=== PATIENT | female | born 1985 | race Caucasian/White ===

== ENCOUNTER 2017-03-30 10:12 | Emergency (ER) | payer MEDICAID ==
[~2017-03-30] VITALS: Ht 167.6 cm; Wt 72.4 kg
[~2017-03-30 10:12] MED LIST: CYCL-1 PO; NAPR-56 PO; NEO/5DRO3 RIGHTEYE; NO HOME MEDS
[2017-03-30 10:15] VITALS: BP 132/95
[2017-03-30] MEDS ORDERED: IBUP-1986 PO (10:29)
[2017-03-30] MEDS ORDERED: PENI500T2 PO (10:29)
[2017-03-30] MEDS ORDERED: HYDR-3965 PO (10:29)
[2017-03-30] MEDS ORDERED: ketorolac trometh inj. 60 MG/2 ML VIAL IM ONE (10:45)
== END 2017-03-30 10:58 | disposition home or self-care (01) ==
LOC: ER 10:13
DX: K08.89 Other specified disorders of teeth and supporting structures (principal); K02.9 Dental caries, unspecified; G89.29 Other chronic pain; M54.9 Dorsalgia, unspecified
CPT/HCPCS: 96372; 99283; J1885

== ENCOUNTER 2018-06-25 15:17 | Emergency (ER) | payer MEDICAID ==
[~2018-06-25] VITALS: Ht 167.6 cm; Wt 78.0 kg
[~2018-06-25 15:17] MED LIST changes: +IBUP-1986 PO
[2018-06-25 15:24] VITALS: BP 143/79
[2018-06-25] MEDS ORDERED: ketorolac trometh. 30mg/ml inj. IM ONE (15:55)
== END 2018-06-25 16:35 | disposition home or self-care (01) ==
LOC: ER 15:18
DX: G89.29 Other chronic pain (principal); M54.5 Low back pain
CPT/HCPCS: 96372; 99283; J1885

== ENCOUNTER 2018-08-09 17:42 | Emergency (ER) | payer MEDICAID ==
[2018-08-09 17:44] VITALS: BP 131/84
[2018-08-09] MEDS ORDERED: ketorolac tromethamine 15mg/ml inj. IM ONE (18:20)
== END 2018-08-09 18:36 | disposition home or self-care (01) ==
LOC: ER 17:42
DX: M25.512 Pain in left shoulder (principal); G89.29 Other chronic pain; M54.5 Low back pain; Z98.890 Other specified postprocedural states; Z79.899 Other long term (current) drug therapy
CPT/HCPCS: 96372; 99283; J1885

== ENCOUNTER 2018-12-05 10:40 | Emergency (ER) | payer MEDICAID ==
[~2018-12-05] VITALS: Ht 167.6 cm; Wt 78.6 kg
[2018-12-05 10:48] VITALS: BP 126/86
[2018-12-05] MEDS ORDERED: AZIT250T PO (11:37)
== END 2018-12-05 11:51 | disposition home or self-care (01) ==
LOC: ER 10:42
DX: J32.9 Chronic sinusitis, unspecified (principal); G89.29 Other chronic pain; Z98.890 Other specified postprocedural states; Z79.2 Long term (current) use of antibiotics; Z79.899 Other long term (current) drug therapy
CPT/HCPCS: 99283

== ENCOUNTER 2019-03-12 13:57 | Emergency (ER) | payer MEDICAID ==
[~2019-03-12] VITALS: Ht 167.6 cm; Wt 76.4 kg
[~2019-03-12 13:57] MED LIST changes: +AZIT250T PO
[2019-03-12 14:19] VITALS: BP 140/77
== END 2019-03-12 15:17 | disposition home or self-care (01) ==
LOC: ER 13:57
DX: M25.532 Pain in left wrist (principal); R20.0 Anesthesia of skin; R20.2 Paresthesia of skin; G89.29 Other chronic pain; Z98.890 Other specified postprocedural states; Z79.2 Long term (current) use of antibiotics; Z79.899 Other long term (current) drug therapy
CPT/HCPCS: 29125; 73110; 99283

== ENCOUNTER 2019-03-15 15:41 | Emergency (ER) | payer MEDICAID ==
[~2019-03-15] VITALS: Ht 167.6 cm; Wt 80.0 kg
[2019-03-15 15:46] VITALS: BP 150/88
== END 2019-03-15 17:24 | disposition home or self-care (01) ==
LOC: ER 15:41
DX: M25.532 Pain in left wrist (principal); M79.642 Pain in left hand; G89.29 Other chronic pain; Z98.890 Other specified postprocedural states; Z79.899 Other long term (current) drug therapy
CPT/HCPCS: 99281

== ENCOUNTER 2019-04-01 21:37 | Emergency (ER) | payer MEDICAID ==
[~2019-04-01] VITALS: Ht 167.6 cm; Wt 73.6 kg
[2019-04-01 21:39] VITALS: BP 136/90
[2019-04-01] MEDS ORDERED: OFLO5DRO3 OT (22:57)
== END 2019-04-01 23:26 | disposition home or self-care (01) ==
LOC: ER 21:38
DX: H60.92 Unspecified otitis externa, left ear (principal); G89.29 Other chronic pain; Z98.890 Other specified postprocedural states; Z79.899 Other long term (current) drug therapy
CPT/HCPCS: 99283

== ENCOUNTER 2019-07-08 00:51 | Emergency (ER) | payer MEDICAID ==
[~2019-07-08] VITALS: Ht 167.6 cm; Wt 77.3 kg
[~2019-07-08 00:51] MED LIST changes: +OFLO5DRO3 OT
[2019-07-08 01:25] LABS: BASOPHILS # (AUTO) 0.1 X10'3 (0-0.2); BASOPHILS % (AUTO) 1.4 % (0-1); EOSINOPHILS # (AUTO) 0.4 X10'3 (0-0.9); EOSINOPHILS % (AUTO) 4.3 % (0-6); HEMATOCRIT 40.2 % (35.0-45.0); HEMOGLOBIN 13.2 g/dl (12.0-16.0); LYMPHOCYTES # (AUTO) 2.6 X10'3 (1.1-4.8); LYMPHOCYTES % (AUTO) 28.6 % (21-51); MEAN CORPUSCULAR HEMOGLOBIN 29.8 PG (27.0-31.0); MEAN CORPUSCULAR HGB CONC 32.8 g/dL (33.0-36.5); MEAN CORPUSCULAR VOLUME 90.7 FL (78-98); MEAN PLATELET VOLUME 7.4 FL (7.4-10.4); MONOCYTES # (AUTO) 0.4 X10'3 (0-0.9); MONOCYTES % (AUTO) 4.5 % (2-12); NEUTROPHILS # (AUTO) 5.5 X10'3 (1.8-7.7); NEUTROPHILS % (AUTO) 61.2 % (42-75); PLATELET COUNT 235 X10'3 (140-440); RED BLOOD COUNT 4.43 X10'6 (4.20-5.60); RED CELL DISTRIBUTION WIDTH 13.5 % (11.5-14.5)
[2019-07-08 01:35] LABS: ALANINE AMINOTRANSFERASE 30 U/L (12-78); ALBUMIN 3.7 G/DL (3.4-5.0); ALBUMIN/GLOBULIN RATIO 1.1 (1.1-1.5); ALKALINE PHOSPHATASE 62 IU/L (46-116); ANION GAP 5 (8-16); ASPARTATE AMINO TRANSFERASE 19 U/L (10-37); BILIRUBIN,TOTAL 0.2 MG/DL (0.1-1.0); BLOOD UREA NITROGEN 16 MG/DL (7-18); CALCIUM 8.8 MG/DL (8.5-10.1); CHLORIDE 106 MMOL/L (99-107); CREATININE 1.14 MG/DL (0.40-0.90); GLUCOSE 111 MG/DL (70-104); SODIUM 140 MMOL/L (135-145); TOTAL CARBON DIOXIDE 29.2 MMOL/L (24-32); TOTAL PROTEIN 7.2 G/DL (6.4-8.2); eGFR 54 ML/MIN
[2019-07-08 02:33] VITALS: BP 119/70
== END 2019-07-08 02:35 | disposition home or self-care (01) ==
LOC: ER 00:52
DX: R07.9 Chest pain, unspecified (principal); R44.8 Other symptoms and signs involving general sensations and perceptions; G89.29 Other chronic pain; F15.90 Other stimulant use, unspecified, uncomplicated; Z98.890 Other specified postprocedural states; Z79.2 Long term (current) use of antibiotics; Z79.899 Other long term (current) drug therapy
CPT/HCPCS: 36415; 71046; 80053; 84443; 84484; 85025; 93005; 99285

== ENCOUNTER 2019-09-23 07:51 | Day surgery (SDC) | payer MEDICAID ==
[2019-09-15 11:10] LABS: BASOPHILS # (AUTO) 0.1 X10'3 (0-0.2); BASOPHILS % (AUTO) 1.2 % (0-1); EOSINOPHILS # (AUTO) 0.3 X10'3 (0-0.9); EOSINOPHILS % (AUTO) 3.7 % (0-6); HEMATOCRIT 40.4 % (35.0-45.0); HEMOGLOBIN 13.2 g/dl (12.0-16.0); LYMPHOCYTES % (AUTO) 24.6 % (21-51); MEAN CORPUSCULAR HEMOGLOBIN 29.2 PG (27.0-31.0); MEAN CORPUSCULAR HGB CONC 32.8 g/dL (33.0-36.5); MEAN CORPUSCULAR VOLUME 89.2 FL (78-98); MEAN PLATELET VOLUME 7.7 FL (7.4-10.4); MONOCYTES # (AUTO) 0.5 X10'3 (0-0.9); NEUTROPHILS # (AUTO) 5.3 X10'3 (1.8-7.7); NEUTROPHILS % (AUTO) 64.5 % (42-75); PLATELET COUNT 246 X10'3 (140-440); RED BLOOD COUNT 4.52 X10'6 (4.20-5.60); RED CELL DISTRIBUTION WIDTH 13.6 % (11.5-14.5); WHITE BLOOD COUNT 8.2 X10'3 (4.5-11.0)
[2019-09-15 11:22] LABS: ALBUMIN 3.6 G/DL (3.4-5.0); ALBUMIN/GLOBULIN RATIO 1.1 (1.1-1.5); ALKALINE PHOSPHATASE 61 IU/L (46-116); BLOOD UREA NITROGEN 10 MG/DL (7-18); BUN/CREATININE RATIO 9.7 (6.6-38.0); CALCIUM 8.3 MG/DL (8.5-10.1); CHLORIDE 108 MMOL/L (99-107); CREATININE 1.03 MG/DL (0.40-0.90); PRE OP ALT 26 U/L (30-65); PRE OP ANION GAP 8 (8-16); PRE OP AST 21 U/L (10-37); PRE OP BILIRUB, TOTAL 0.3 MG/DL (0.0-1.0); PRE OP GLUCOSE 79 MG/DL (70-104); PRE OP POTASSIUM 3.8 MMOL/L (3.4-5.1); PRE OP SODIUM 144 MMOL/L (135-145); eGFR 61 ML/MIN
[2019-09-15 11:25] LABS: HCG SERUM QL NEGATIVE
[~2019-09-23] VITALS: Ht 167.6 cm; Wt 79.0 kg
[~2019-09-23 07:51] MED LIST changes: +ASCO250T68 PO; -AZIT250T PO; +CHOL200013 PO; -CYCL-1 PO; -IBUP-1986 PO; +LYSI500T11 PO; +MULT-85 PO; -NAPR-56 PO; -NEO/5DRO3 RIGHTEYE; -NO HOME MEDS; -OFLO5DRO3 OT; +VANCOMYCIN 1,500MG inj. 1,500 MG in normal saline 500ml IV soln 500 ML IV ONE; +ceFAZolin 2gm in dextrose, iso 50 ML IV ONE; +famotidine 20mg tablet PO ONE; +ringers solution, lacted 1,000 ML IV SCH; +vancomycin 1,500 MG in NS 300ml IV soln IV ONE
[2019-09-23 09:05] VITALS: BP 112/78
[2019-09-23] MEDS ORDERED: BUPIVAcaine/PF 2.5 mg/ml (0.25%) 30ml vial ONE (10:37)
[2019-09-23] MEDS ORDERED: LIDOcaine 0.5% W/epiNEPHrine 1:200,000 50ml vial IJ ONE (11:03)
[2019-09-23] MEDS ORDERED: LIDOcaine 0.5% (5mg/ml) 50ml vial ONE (11:07)
[2019-09-23] MEDS ORDERED: fentaNYL/PF 50MCG/1 ML 2ML syringe ONE (11:20)
[2019-09-23] MEDS ORDERED: midazolam 2 mg/2 ml injection ONE (11:55)
[2019-09-23] MEDS ORDERED: propofol inj 20 ML IV ONE ×3 (11:55)
[2019-09-23] MEDS ORDERED: ringers solution, lacted 1,000 ML IV SCH (11:56)
[2019-09-23] MEDS ORDERED: ondansetron/PF 4mg/2ml inj IV PRN (12:00)
[2019-09-23] MEDS ORDERED: proCHLORperazine 10 MG/2 ml inj IV PRN (12:00)
[2019-09-23] MEDS ORDERED: meperidine/PF 25mg/ml syringe IV PRN ×3 (12:00)
[2019-09-23] MEDS ORDERED: morphine 4 MG/ML inj SYRINge IV PRN (12:00)
[2019-09-23] MEDS ORDERED: acetaminophen 1,000mg/100ml IV 100 ML IV PRN (12:00)
[2019-09-23] MEDS ORDERED: morphine 2 MG/ML inj. syringe IV PRN (12:00)
[2019-09-23 12:21] VITALS: BP 118/72
--- NOTE | 2019-09-23 12:21 | NUR ---
Received from OR via [facility] , accompanied by Anesthesiologist LICO and report given by Anesthesiolgist. PATIENT WITH 20G PIV IN RIGHT UE RUNNING LR AT 100. DENIES PAIN LEFT WRIST DRESSING IS CDI. NO DRAINAGE PRESNET. + CAP REFILL. 10L MASK ON WITH 100% SATURATIONS. Addendum: 09/23/19 at 1232 by Jose Gerard RN, RN Amended: Links added.
[2019-09-23 12:31] VITALS: BP 120/72
[2019-09-23 12:41] VITALS: BP 118/70
--- NOTE | 2019-09-23 12:51 | NUR ---
I HAVE REVIEWED D/C INSTRUCTIONS WITH PATIENT AND FAMILY AND THEY HAVE VERBALIZED UNDERSTANDING. PATIENT D/C HOME WITH ALL BELONGINGS AND FAMILY GAVE TRANSPORT HOME. Addendum: 09/23/19 at 1512 by Jose Gerard RN, RN Amended: Links added.
== END 2019-09-23 12:51 | disposition home or self-care (01) ==
LOC: PAS 07:51
PROVIDERS: ATTEND Orthopaedic Surgery
DX: S63.592A Other specified sprain of left wrist, initial encounter (principal); M65.842 Other synovitis and tenosynovitis, left hand; F32.9 Major depressive disorder, single episode, unspecified; E66.8 Other obesity; Z68.28 Body mass index [BMI] 28.0-28.9, adult; Z72.89 Other problems related to lifestyle; F17.290 Nicotine dependence, other tobacco product, uncomplicated; Z11.59 Encounter for screening for other viral diseases; Z79.899 Other long term (current) drug therapy; Z98.890 Other specified postprocedural states; Z86.14 Personal history of Methicillin resistant Staphylococcus aureus infection; X58.XXXA Exposure to other specified factors, initial encounter; Y93.89 Activity, other specified; Y92.89 Other specified places as the place of occurrence of the external cause; Y99.8 Other external cause status
CPT/HCPCS: 29846; 36415; 80053; 82948; 84703; 85025; J2001; J2250; J2704; J3010; J3370; J3490; J7040; J7120; U0003; A4215; A6250; A6449; A7000

== ENCOUNTER 2019-12-14 15:58 | Emergency (ER) | payer MEDICAID ==
[~2019-12-14 15:58] MED LIST changes: -VANCOMYCIN 1,500MG inj. 1,500 MG in normal saline 500ml IV soln 500 ML IV ONE; -ceFAZolin 2gm in dextrose, iso 50 ML IV ONE; -famotidine 20mg tablet PO ONE; -ringers solution, lacted 1,000 ML IV SCH; -vancomycin 1,500 MG in NS 300ml IV soln IV ONE
--- NOTE | 2019-12-14 16:33 | NUR ---
PT WAS UP FOR TRIAGE, TOLD ADMITTING THAT SHE NO LONGER WANTED TO STAY. BEFORE ADMITTING COULD NOTIFIED [employer]M [employer]TER AND FINISHER, PT LEFT THE LOBBY.
== END 2019-12-14 16:35 | disposition left against medical advice (07) ==
LOC: ER 15:59
DX: R33.9 Retention of urine, unspecified (principal); Z53.21 Procedure and treatment not carried out due to patient leaving prior to being seen by health care provider

== ENCOUNTER 2021-06-12 15:04 | Inpatient (IN) | payer MEDICAID ==
[~2021-06-12] VITALS: Ht 167.6 cm; Wt 113.6 kg
[2021-06-12] MEDS ORDERED: aspirin 81mg tab.chew PO ONE (15:15)
[2021-06-12 15:44] LABS: BASOPHILS # (AUTO) 0.1 X10'3 (0-0.2); BASOPHILS % (AUTO) 1.4 % (0-1); EOSINOPHILS # (AUTO) 0.3 X10'3 (0-0.9); EOSINOPHILS % (AUTO) 4.3 % (0-6); HEMATOCRIT 31.2 % (35.0-45.0); LYMPHOCYTES # (AUTO) 2.7 X10'3 (1.1-4.8); LYMPHOCYTES % (AUTO) 35.2 % (21-51); MEAN CORPUSCULAR HEMOGLOBIN 25.1 PG (27.0-31.0); MEAN CORPUSCULAR HGB CONC 32.1 g/dL (33.0-36.5); MEAN CORPUSCULAR VOLUME 78.1 FL (78-98); MEAN PLATELET VOLUME 7.3 FL (7.4-10.4); MONOCYTES # (AUTO) 0.4 X10'3 (0-0.9); MONOCYTES % (AUTO) 5.7 % (2-12); NEUTROPHILS % (AUTO) 53.4 % (42-75); PLATELET COUNT 372 X10'3 (140-440); RED CELL DISTRIBUTION WIDTH 15.9 % (11.5-14.5); WHITE BLOOD COUNT 7.5 X10'3 (4.5-11.0)
[2021-06-12 15:50] LABS: APTT 26 SECONDS (22-32)
[2021-06-12 15:52] LABS: ALANINE AMINOTRANSFERASE 28 U/L (12-78); ALBUMIN 3.4 G/DL (3.4-5.0); ALBUMIN/GLOBULIN RATIO 0.9 (1.1-1.5); ALKALINE PHOSPHATASE 92 IU/L (46-116); ANION GAP 9 (8-16); ASPARTATE AMINO TRANSFERASE 15 U/L (10-37); BILIRUBIN,TOTAL 0.2 MG/DL (0.1-1.0); BLOOD UREA NITROGEN 12 MG/DL (7-18); CALCIUM 8.6 MG/DL (8.5-10.1); CHLORIDE 105 MMOL/L (99-107); CREATININE 0.92 MG/DL (0.40-0.90); GLUCOSE 114 MG/DL (70-104); POTASSIUM 3.5 MMOL/L (3.5-5.1); SODIUM 141 MMOL/L (135-145); TOTAL CARBON DIOXIDE 26.6 MMOL/L (24-32); eGFR 69 ML/MIN
[2021-06-12] MEDS ORDERED: iohexol 350MG/ML 100ml bottle IV ONE (16:03)
--- NOTE | 2021-06-12 16:20 | NUR ---
BACK FROM CT, IN BR WITH CUP FOR SPECIMEN
[2021-06-12] MEDS ORDERED: enoxaparin 100mg/ml syringe SUBCUT ONE (16:50)
[2021-06-12 16:54] LABS: CLARITY,URINE CLEAR (Clear); COLOR,URINE YELLOW (Yellow); GLUCOSE, URINE NEGATIVE (Neg); KETONES,URINE NEGATIVE (Neg); LEUKOCYTE ESTERASE ,URINE NEGATIVE (Neg); NITRITES, URINE NEGATIVE (Neg); OCCULT BLOOD,URINE LARGE (Neg); PROTEIN,URINE NEGATIVE (Neg); UROBILINOGEN,URINE 0.2 E.U/dL (0.2-1.0)
[2021-06-12] MEDS ORDERED: HYDROcodone/acetaminophen 5mg/325mg tablet PO ONE (17:10)
[2021-06-12 17:18] LABS: UA COLLECTION TYPE CLN CATCH MIDSTREAM; URINE AMPHETAMINE SCREEN POSITIVE (Neg); URINE BARBITUATE SCREEN NEGATIVE (Neg); URINE BENZODIAZEPINES SCREEN NEGATIVE (Neg); URINE CANNABINOID SCREEN NEGATIVE (Neg); URINE COCAINE SCREEN NEGATIVE (Neg); URINE METHADONE SCREEN NEGATIVE (Neg); URINE OPIATE SCREEN NEGATIVE (Neg); URINE PHENCYCLIDINE SCREEN NEGATIVE (Neg)
[2021-06-12 17:20] LABS: BACTERIA,URINE NONE SEEN /HPF (Neg); SQUAMOUS EPITHELIAL CELL,UR FEW /LPF (FEW); WBC,URINE NONE SEEN /HPF (0-4)
[2021-06-12] MEDS ORDERED: magnesium 4gm in 100ml NS 100 ML IV PRN (18:10)
[2021-06-12] MEDS ORDERED: ondansetron/PF 4mg/2ml inj IV PRN (18:10)
[2021-06-12] MEDS ORDERED: acetaminophen 325mg tablet PO PRN ×2 (18:10)
[2021-06-12] MEDS ORDERED: magnesium 2GM in 50ml NS 50 ML IV PRN (18:10)
[2021-06-12] MEDS ORDERED: PERFLUTREN PROTEIN-A MICROSPHR (Optison) 0.22 MG/ML 3ML VIAL IV ONE (18:10)
[2021-06-12] MEDS ORDERED: normal saline 1000ml 1,000 ML IV SCH (18:10)
[2021-06-12] MEDS ORDERED: potassium CL 10mEq/100ml bag 100 ML IV PRN (18:10)
[2021-06-12] MEDS ORDERED: magnesium Cl slow-release 64mg tablet PO PRN (18:10)
[2021-06-12] MEDS ORDERED: potassium Cl 20 mEq SR tablet PO PRN ×2 (18:10)
[2021-06-12 18:48] LABS: MAGNESIUM 2.2 MG/DL (1.5-2.4); POTASSIUM 3.7 MMOL/L (3.5-5.1)
[2021-06-12 18:50] LABS: % IRON SATURATION 30 % (11-46); IRON 128 UG/DL (49-151); TOTAL IRON BINDING CAPACITY 427 UG/DL (259-388)
[2021-06-12] MEDS: K and/or MAG REPLACEMENT MC SCH (20:00)
[2021-06-12] MEDS: apixaban 5mg tablet PO SCH (20:37)
--- NOTE | 2021-06-12 23:06 | NUR ---
Report called to LINDA Stark for pt going to [facility] [id number]
[2021-06-12 23:40] VITALS: BP 126/72
[2021-06-12] MEDS: HYDROcodone/acetaminophen 5mg/325mg tablet PO PRN (23:44)
--- NOTE | 2021-06-13 01:02 | NUR ---
Patient admitted to room 3028N. Alert and oriented 4, a little emotional at this time. Admission completed, skin intact. Tele placed and vitals are stable. Complaints of chest pain. [place] given.
[2021-06-13 02:00] VITALS: BP 130/68
[2021-06-13] MEDS: HYDROcodone/acetaminophen 5mg/325mg tablet PO PRN ×3 (05:18→14:23)
[2021-06-13 06:00] VITALS: BP 116/61
[2021-06-13 06:00] LABS: BASOPHILS # (AUTO) 0.1 X10'3 (0-0.2); BASOPHILS % (AUTO) 1.2 % (0-1); EOSINOPHILS # (AUTO) 0.4 X10'3 (0-0.9); EOSINOPHILS % (AUTO) 5.6 % (0-6); HEMATOCRIT 29.8 % (35.0-45.0); HEMOGLOBIN 9.6 g/dl (12.0-16.0); LYMPHOCYTES # (AUTO) 2.9 X10'3 (1.1-4.8); LYMPHOCYTES % (AUTO) 45.2 % (21-51); MEAN CORPUSCULAR HEMOGLOBIN 25.2 PG (27.0-31.0); MEAN CORPUSCULAR HGB CONC 32.2 g/dL (33.0-36.5); MEAN CORPUSCULAR VOLUME 78.3 FL (78-98); MEAN PLATELET VOLUME 7.6 FL (7.4-10.4); MONOCYTES # (AUTO) 0.4 X10'3 (0-0.9); MONOCYTES % (AUTO) 6.3 % (2-12); NEUTROPHILS # (AUTO) 2.7 X10'3 (1.8-7.7); NEUTROPHILS % (AUTO) 41.7 % (42-75); PLATELET COUNT 333 X10'3 (140-440); RED BLOOD COUNT 3.81 X10'6 (4.20-5.60); RED CELL DISTRIBUTION WIDTH 15.9 % (11.5-14.5); WHITE BLOOD COUNT 6.4 X10'3 (4.5-11.0)
[2021-06-13 06:11] LABS: ALBUMIN 2.9 G/DL (3.4-5.0); ANION GAP 9 (8-16); BLOOD UREA NITROGEN 14 MG/DL (7-18); BUN/CREATININE RATIO 18.4 (6.6-38.0); CALCIUM 7.9 MG/DL (8.5-10.1); CHLORIDE 111 MMOL/L (99-107); CREATININE 0.76 MG/DL (0.40-0.90); GLUCOSE 108 MG/DL (70-104); MAGNESIUM 2.4 MG/DL (1.5-2.4); POTASSIUM 4.1 MMOL/L (3.5-5.1); SODIUM 146 MMOL/L (135-145); TOTAL CARBON DIOXIDE 25.6 MMOL/L (24-32); eGFR 86 ML/MIN
[2021-06-13] MEDS: apixaban 5mg tablet PO SCH (08:17)
[2021-06-13] MEDS: K and/or MAG REPLACEMENT MC SCH (08:31)
[2021-06-13 11:00] VITALS: BP 124/72
[2021-06-13] MEDS ORDERED: APIX5TAB3 PO (14:31)
[2021-06-13 15:00] VITALS: BP 130/87
--- NOTE | 2021-06-13 16:25 | NUR ---
patient discharged to home, all belongings packed and took home with patient.
== END 2021-06-13 17:49 | disposition home or self-care (01) | DRG 134 ==
LOC: ER 15:05 → ED HOLD 18:14 → PCU 3S 23:32
PROVIDERS: ADMIT Internal Medicine; ATTEND Internal Medicine
PROC: B32T1ZZ Computerized Tomography (CT Scan) of Left Pulmonary Artery using Low Osmolar Contrast (ICD-10-PCS; principal; 2021-06-12)
PROC: B3201ZZ Computerized Tomography (CT Scan) of Thoracic Aorta using Low Osmolar Contrast (ICD-10-PCS; 2021-06-12)
PROC: B32S1ZZ Computerized Tomography (CT Scan) of Right Pulmonary Artery using Low Osmolar Contrast (ICD-10-PCS; 2021-06-12)
DX: I26.99 Other pulmonary embolism without acute cor pulmonale (principal); D50.9 Iron deficiency anemia, unspecified; F15.90 Other stimulant use, unspecified, uncomplicated; G89.29 Other chronic pain; F17.200 Nicotine dependence, unspecified, uncomplicated; I10 Essential (primary) hypertension; Z79.899 Other long term (current) drug therapy
CPT/HCPCS: 36415; 70450; 71045; 71275; 80048; 80053; 80305; 81001; 83540; 83550; 83735; 83880; 84132; 84484; 85025; 85379; 85610; 85730; 86885; 86900; 86901; 87081; 93005; 93306; 93970; 99285; G0378; J1650; J7030; Q9967

== ENCOUNTER 2021-06-18 22:51 | Emergency (ER) | payer MEDICAID ==
[~2021-06-18] VITALS: Ht 167.6 cm; Wt 100.0 kg
[~2021-06-18 22:51] MED LIST changes: +APIX5TAB3 PO
[2021-06-19 02:32] VITALS: BP 131/76
== END 2021-06-19 02:34 | disposition left against medical advice (07) ==
LOC: ER 22:52
DX: R07.9 Chest pain, unspecified (principal); Z53.21 Procedure and treatment not carried out due to patient leaving prior to being seen by health care provider
CPT/HCPCS: 36415; 84484; 93005

== ENCOUNTER 2021-07-30 11:13 | Emergency (ER) | payer MEDICAID ==
[~2021-07-30] VITALS: Ht 167.6 cm; Wt 102.3 kg
[2021-07-30 11:21] VITALS: BP 139/97
== END 2021-07-30 15:30 | disposition left against medical advice (07) ==
LOC: ER 11:13
DX: N93.9 Abnormal uterine and vaginal bleeding, unspecified (principal); Z53.21 Procedure and treatment not carried out due to patient leaving prior to being seen by health care provider

== ENCOUNTER 2021-08-24 12:12 | Emergency (ER) | payer MEDICAID ==
[~2021-08-24] VITALS: Ht 167.6 cm; Wt 102.0 kg
[2021-08-24 13:21] LABS: BASOPHILS # (AUTO) 0.1 X10'3 (0-0.2); EOSINOPHILS # (AUTO) 0.3 X10'3 (0-0.9); EOSINOPHILS % (AUTO) 3.6 % (0-6); HEMATOCRIT 37.8 % (35.0-45.0); HEMOGLOBIN 11.9 g/dl (12.0-16.0); LYMPHOCYTES # (AUTO) 2.2 X10'3 (1.1-4.8); LYMPHOCYTES % (AUTO) 26.4 % (21-51); MEAN CORPUSCULAR HEMOGLOBIN 23.9 PG (27.0-31.0); MEAN CORPUSCULAR HGB CONC 31.5 g/dL (33.0-36.5); MEAN PLATELET VOLUME 7.6 FL (7.4-10.4); MONOCYTES # (AUTO) 0.4 X10'3 (0-0.9); MONOCYTES % (AUTO) 4.9 % (2-12); NEUTROPHILS # (AUTO) 5.2 X10'3 (1.8-7.7); NEUTROPHILS % (AUTO) 64.1 % (42-75); PLATELET COUNT 288 X10'3 (140-440); RED BLOOD COUNT 4.97 X10'6 (4.20-5.60); RED CELL DISTRIBUTION WIDTH 19.1 % (11.5-14.5); WHITE BLOOD COUNT 8.1 X10'3 (4.5-11.0)
[2021-08-24 13:29] LABS: ALANINE AMINOTRANSFERASE 43 U/L (12-78); ALBUMIN 3.7 G/DL (3.4-5.0); ALKALINE PHOSPHATASE 75 IU/L (46-116); ANION GAP 8 (8-16); ASPARTATE AMINO TRANSFERASE 18 U/L (10-37); BILIRUBIN,TOTAL 0.3 MG/DL (0.1-1.0); BLOOD UREA NITROGEN 13 MG/DL (7-18); BUN/CREATININE RATIO 12.9 (6.6-38.0); CALCIUM 8.7 MG/DL (8.5-10.1); CHLORIDE 106 MMOL/L (99-107); CREATININE 1.01 MG/DL (0.40-0.90); GLUCOSE 113 MG/DL (70-104); POTASSIUM 3.2 MMOL/L (3.5-5.1); SODIUM 142 MMOL/L (135-145); TOTAL CARBON DIOXIDE 28.5 MMOL/L (24-32); TOTAL PROTEIN 7.3 G/DL (6.4-8.2); eGFR 62 ML/MIN
[2021-08-24 14:18] LABS: ANISOCYTOSIS 2+; BURR CELLS FEW; ELLIPTOCYTES FEW; HYPOCHROMASIA 1+; MICROCYTOSIS 1+; PLATELET ESTIMATE NORMAL
--- NOTE | 2021-08-24 15:58 | NUR ---
to nuc med
[2021-08-24] MEDS ORDERED: acetaminophen 325mg tablet PO ONE (16:45)
[2021-08-24 17:29] VITALS: BP 144/81
== END 2021-08-24 17:43 | disposition home or self-care (01) ==
LOC: ER 12:12
DX: R07.89 Other chest pain (principal); G89.29 Other chronic pain; F15.90 Other stimulant use, unspecified, uncomplicated; Z79.01 Long term (current) use of anticoagulants; Z79.899 Other long term (current) drug therapy; Z98.890 Other specified postprocedural states
CPT/HCPCS: 36415; 71045; 78582; 80053; 83880; 84484; 85008; 85025; 93005; 99285; A9539; A9540

== ENCOUNTER 2023-04-05 16:17 | Emergency (ER) | payer MEDICAID ==
[~2023-04-05] VITALS: Ht 167.6 cm; Wt 102.3 kg
[2023-04-05 17:00] LABS: BASOPHILS # (AUTO) 0.1 X10'3 (0-0.2); BASOPHILS % (AUTO) 0.9 % (0-1); EOSINOPHILS # (AUTO) 0.4 X10'3 (0-0.9); EOSINOPHILS % (AUTO) 3.7 % (0-6); HEMATOCRIT 35.7 % (35.0-45.0); HEMOGLOBIN 11.3 g/dl (12.0-16.0); LYMPHOCYTES # (AUTO) 2.7 X10'3 (1.1-4.8); LYMPHOCYTES % (AUTO) 23.9 % (21-51); MEAN CORPUSCULAR HEMOGLOBIN 23.5 PG (27.0-31.0); MEAN CORPUSCULAR HGB CONC 31.7 g/dL (33.0-36.5); MEAN PLATELET VOLUME 7.3 FL (7.4-10.4); MONOCYTES # (AUTO) 0.7 X10'3 (0-0.9); MONOCYTES % (AUTO) 6.4 % (2-12); NEUTROPHILS # (AUTO) 7.5 X10'3 (1.8-7.7); NEUTROPHILS % (AUTO) 65.1 % (42-75); PLATELET COUNT 323 X10'3 (140-440); RED BLOOD COUNT 4.83 X10'6 (4.20-5.60); RED CELL DISTRIBUTION WIDTH 17.1 % (11.5-14.5); WHITE BLOOD COUNT 11.5 X10'3 (4.5-11.0)
[2023-04-05 17:16] LABS: ALANINE AMINOTRANSFERASE 21 U/L (12-78); ALBUMIN 3.2 G/DL (3.4-5.0); ALBUMIN/GLOBULIN RATIO 0.7 (1.1-1.5); ALKALINE PHOSPHATASE 93 IU/L (46-116); ANION GAP 7 (8-16); ASPARTATE AMINO TRANSFERASE 17 U/L (10-37); BILIRUBIN,TOTAL 0.2 MG/DL (0.1-1.0); BLOOD UREA NITROGEN 13 MG/DL (7-18); CALCIUM 8.6 MG/DL (8.5-10.1); CHLORIDE 103 MMOL/L (99-107); CREATININE 0.93 MG/DL (0.40-0.90); GLUCOSE 89 MG/DL (70-104); POTASSIUM 3.9 MMOL/L (3.5-5.1); SODIUM 139 MMOL/L (135-145); TOTAL CARBON DIOXIDE 29.4 MMOL/L (24-32); TOTAL PROTEIN 7.5 G/DL (6.4-8.2); eCRCL 77 ML/MIN; eGFR 67 ML/MIN
[2023-04-05 17:25] LABS: PRO BRAIN NATRIURETIC PEPTIDE 46 PG/ML (0-125)
[2023-04-05 18:36] VITALS: TEMP 98.5
[2023-04-05 21:54] VITALS: BP 123/76; PULSE 91; RESP 15; O2SAT 98
== END 2023-04-05 22:14 | disposition left against medical advice (07) ==
LOC: ER 16:18
DX: R42 Dizziness and giddiness (principal); Z53.21 Procedure and treatment not carried out due to patient leaving prior to being seen by health care provider
CPT/HCPCS: 36415; 71045; 80053; 83880; 84484; 85025; 93005; 99281

== ENCOUNTER 2023-08-06 10:51 | Outpatient (CLI) | payer MEDICAID | END 2023-08-06 23:59 | disposition home or self-care (01) | LOC: MRI 10:51 | PROVIDERS: ATTEND Registered Nurse | DX: M25.872 Other specified joint disorders, left ankle and foot (principal); R60.9 Edema, unspecified; M79.672 Pain in left foot | CPT/HCPCS: 73718 ==

== ENCOUNTER 2023-12-26 16:51 | Emergency (ER) | payer MEDICAID ==
[~2023-12-26] VITALS: Ht 167.6 cm; Wt 91.4 kg
[2023-12-26] MEDS ORDERED: IBUP-1985 PO (19:27)
[2023-12-26 19:53] VITALS: BP 124/74; PULSE 74; RESP 16; TEMP 99.1; O2SAT 97
== END 2023-12-26 19:57 | disposition home or self-care (01) ==
LOC: ER 16:52
DX: G47.62 Sleep related leg cramps (principal); M79.604 Pain in right leg; F15.90 Other stimulant use, unspecified, uncomplicated; G89.29 Other chronic pain; Z79.899 Other long term (current) drug therapy
CPT/HCPCS: 99282